=== PATIENT | male | born 1960 | race African-American/Black ===

== ENCOUNTER 2022-01-04 19:57 | Emergency (ER) | payer MEDICARE, MEDICAID ==
[~2022-01-04] VITALS: Ht 182.9 cm; Wt 113.0 kg
[2022-01-04] MEDS ORDERED: IBUPROFEN 600MG TABLET PO ONE (23:00)
[2022-01-04] MEDS ORDERED: MELO-105 MT (23:31)
[2022-01-04 23:45] VITALS: BP 108/88
== END 2022-01-04 23:45 | disposition home or self-care (01) ==
LOC: ER 19:57
DX: M25.532 Pain in left wrist (principal); M25.531 Pain in right wrist; I10 Essential (primary) hypertension; E78.00 Pure hypercholesterolemia, unspecified; Z86.73 Personal history of transient ischemic attack (TIA), and cerebral infarction without residual deficits
CPT/HCPCS: 73110; 99283